=== PATIENT | male | born 1980 | race Hispanic/Latino ===

== ENCOUNTER 2017-10-13 19:46 | Emergency (ER) | payer BC ==
[2017-10-13 20:02] VITALS: BP 109/72; PULSE 72; RESP 18; TEMP 98.1; O2SAT 100
[2017-10-13] MEDS ORDERED: Morphine 4 MG/ML VIAL IVP ONE (21:47)
[2017-10-13] MEDS ORDERED: Sodium Chloride 0.9% 1,000 ML IV STA (21:47)
[2017-10-13 22:15] LABS: BASO % 0.2 % (0.0-2.0); EOS % 0.1 % (0.0-4.0); HEMOGLOBIN 13.2 g/dL (12.0-18.0); LYMPH # 0.5 K/uL (1.0-4.3); LYMPH % 4.9 % (20.0-40.0); MEAN CELL VOLUME 84.3 fl (80.0-94.0); MEAN CORPUSCULAR HGB CONC 33.2 g/dL (33.0-37.0); MEAN PLATELET VOLUME 7.9 fl (7.2-11.7); MONO # 0.6 K/uL (0.0-0.8); MONO % 5.3 % (0.0-10.0); NEUT # 9.7 K/uL (1.8-7.0); NEUT % 89.5 % (50.0-75.0); NRBC % 0.1 % (0.0-0.0); PLATELET COUNT 340 K/uL (130-400); WHITE BLOOD COUNT 10.9 K/uL (4.8-10.8)
[2017-10-13 22:24] LABS: ALB/GLOB RATIO 1.2 (1.0-2.1); ALBUMIN 4.2 g/dL (3.5-5.0); ALT/SGPT 23 U/L (21-72); AST/SGOT 19 U/L (17-59); BLOOD UREA NITROGEN 13 mg/dl (9-20); CALCIUM 9.3 mg/dL (8.4-10.2); GFR AFRICAN-AMERICAN > 60; GFR NON-AFRICAN AMERICAN > 60; LIPASE 43 U/L (23-300)
--- NOTE | 2017-10-13 22:33 | ED PDOC ---
HPI: Abdomen Time Seen by Provider: 10/13/17 21:26 Chief Complaint (Nursing): Abdominal Pain Chief Complaint (Provider): abdominal pain History Per: Patient History/Exam Limitations: no limitations Onset/Duration Of Symptoms: Days (x2) Current Symptoms Are (Timing): Still Present Quality Of Discomfort: Sharp, Cramping Associated Symptoms: Nausea, Vomiting, Diarrhea Additional Complaint(s): Carroll Phillips is a 37 year old male, with a past medical history of Crohn's disease, who presents to the emergency department complaining of abdominal pain associated with nausea, vomit and diarrhea onset for x2 days. Patient states at 01:00 he started to develop diarrhea with abdominal cramps and vomiting, he reports last episode was bloody. He describes pain is sharp and crampy. Patient states he was diagnosed with Crohn's disease many years ago but is not under any treatment. He reports losing weight consistently for the past x5 years but denies any other medical complaints. PMD: None provided. Past Medical History Reviewed: Historical Data, Nursing Documentation, Vital Signs Vital Signs: Last Vital Signs Temp 98.1 F 10/14/17 03:16 Pulse 72 10/14/17 03:16 Resp 18 10/14/17 03:16 BP 109/72 10/14/17 03:16 Pulse Ox 100 10/14/17 03:16 - Medical History PMH: Crohn's Disease - Surgical History Surgical History: No Surg Hx - Family History Family History: States: Unknown Family Hx - Home Medications Home Medications: Ambulatory Orders Medication Instructions Recorded Dicyclomine [Bentyl] 20 mg PO Q12 PRN #20 tab 10/14/17 Esomeprazole Magnesium [Nexium] 40 mg PO DAILY #28 ecc 10/14/17 Ondansetron ODT [Zofran ODT] 4 mg PO Q6 PRN #8 odt 10/14/17 - Allergies Allergies/Adverse Reactions: Allergies Allergy/AdvReac Type Severity Reaction Status Date / Time aspirin Allergy SWELLING Verified 10/13/17 19:59 shrimp Allergy SWELLING Verified 10/13/17 19:59 Review of Systems ROS Statement: Except As Marked, All Systems Reviewed And Found Negative Constitutional: Positive for: Weight loss Gastrointestinal: Positive for: Nausea, Vomiting, Abdominal Pain (crampy, sharp) , Diarrhea Physical Exam - Reviewed Nursing Documentation Reviewed: Yes Vital Signs Reviewed: Yes - Physical Exam Appears: Positive for: No Acute Distress (comfortable) Head Exam: Positive for: ATRAUMATIC, NORMAL INSPECTION, NORMOCEPHALIC Skin: Positive for: Normal Color, Warm, Dry Eye Exam: Positive for: Normal appearance, EOMI, PERRL Neck: Positive for: Painless ROM Cardiovascular/Chest: Positive for: Regular Rate, Rhythm. Negative for: Murmur Respiratory: Positive for: Normal Breath Sounds. Negative for: Respiratory Distress Gastrointestinal/Abdominal: Positive for: Tenderness (mild epigastric) Back: Positive for: Normal Inspection Extremity: Positive for: Normal ROM (upper and lower extremities). Negative for : Deformity, Swelling Neurologic/Psych: Positive for: Alert, Oriented. Negative for: Motor/Sensory Deficits - Laboratory Results Result Diagrams: 10/13/17 22:07 10/13/17 22:07 - ECG O2 Sat by Pulse Oximetry: 100 (RA) Pulse Ox Interpretation: Normal Medical Decision Making Medical Decision Making: Time: 21:26 Initial Impression: 37 y/o male with abdominal pain, vomiting, and diarrhea in setting of Crohn's disease Initial Plan: --Abd & Pelvis IV Contrast [CT] --Urine dipstick --CBC w/ differential --Morphine 4 mg IVP --Sodium Chloride 1,000 ml IV 1,000 mls/hr --Zofran Inj 4 mg IV --Protonix Inj 80 mg IV --Urinalysis --Reevaluation Abd & Pelvis CT FINDINGS: Lung bases: There is bibasilar atelectasis. ABDOMEN: Liver: Enlarged fatty liver. Gallbladder and bile ducts: Unremarkable. No ductal dilation. Pancreas: Unremarkable. No mass. No ductal dilation. Spleen: Unremarkable. No splenomegaly. Adrenals: Unremarkable. No mass. Kidneys and ureters: Unremarkable. No solid mass. No hydronephrosis. Stomach and bowel: There are distended MID to distal small bowel loops with air fluid level measuring 4.5 cm with mesenteric edema. There is thickening of distal small bowel and terminal ileum seen on image 131 series 3. These findings are suspicious for active acute inflammatory bowel disease. Correlation with patient gastroenterology history is recommended. Diverticulosis. The colon is decompressed.Nonspecific gastric thickening likely due to under distention. Correlation with clinical data is recommended if gastritis is suspected. PELVIS: Appendix: Appendix is 11 mm in thickness with periappendiceal fluid and no appendicolith. This could represent reactive changes secondary to inflammatory bowel disease. Bladder: Bladder distention. Correlation with patient's voiding status is recommended. Reproductive: Unremarkable. ABDOMEN and PELVIS: Intraperitoneal space: Small amount of abdomen intraperitoneal fluid and free pelvic fluid. No free air. Bones/joints: No acute fracture. No dislocation. Soft tissues: Unremarkable. Vasculature: The aorta is normal in caliber and there are no antionette-aortic collections. No abdominal aortic aneurysm. Lymph nodes: Multiple subcentimeter mesenteric and ileocolic lymph nodes. IMPRESSION: 1. There are distended MID to distal small bowel loops with air fluid level measuring 4.5 cm with mesenteric edema. There is thickening of distal small bowel and terminal ileum seen on image 131 series 3. These findings are suspicious for active acute inflammatory bowel disease. Correlation with patient gastroenterology history is recommended. 2. Small amount of abdomen intraperitoneal fluid and free pelvic fluid. Correlation with internal medicine evaluation and further workup or followup as recommended by patient's clinical data. Time: 02:15 --Upon reevaluation, patient reports feeling marginally improved. No RLQ tenderness. He commits to following up with GI specialist. Diagnosis is abdominal pain and Crohn's disease. --Patient was given return precautions about the hospital. --Labs were reviewed and revealed no clinically significant abnormalities. ----- Scribe Attestation: Documented by Hitesh Justice, acting as a scribe for Efrain Soto MD. Provider Scribe Attestation: All medical record entries made by the Scribe were at my direction and personally dictated by me. I have reviewed the chart and agree that the record accurately reflects my personal performance of the history, physical exam, medical decision making, and the department course for this patient. I have also personally directed, reviewed, and agree with the discharge instructions and disposition. Disposition - Clinical Impression Clinical Impression: Abdominal pain, Crohn disease - Disposition Referrals: Houston Preston MD [Medical Doctor] - Disposition Time: 15:00 Condition: STABLE Prescriptions: Dicyclomine [Bentyl] 20 mg PO Q12 PRN #20 tab PRN Reason: abdominal pain/diarrhea Esomeprazole Magnesium [Nexium] 40 mg PO DAILY #28 ecc Ondansetron ODT [Zofran ODT] 4 mg PO Q6 PRN #8 odt PRN Reason: Nausea/Vomiting Instructions: Crohn's Disease in Adults Forms: [employer] ([place])
[2017-10-13] MEDS ORDERED: Iohexol 300 100 ML IJ ONE (22:50)
[2017-10-13] MEDS ORDERED: Sodium Chloride 0.9% 100 ML ONE (22:51)
[2017-10-13 22:54] LABS: BASOPHIL 1 % (0-2); EOSINOPHIL 1 % (0-7); LYMPHOCYTE 4 % (20-50); MONOCYTE 2 % (0-10); NEUTROPHIL 92 % (42-75); PLATELET ESTIMATE NORMAL (NORMAL); TOTAL CELLS COUNTED 100
[2017-10-13] MEDS ORDERED: DiphenhydrAMINE 50 mg/ml Inj IV STA (22:59)
[2017-10-13] MEDS ORDERED: DiphenhydrAMINE 50 mg/ml Inj ONE (23:07)
--- NOTE | 2017-10-14 15:49 | CT ---
Date of service: 10/14/2017 PROCEDURE: CT Abdomen and Pelvis with contrast HISTORY: Abdominal pain COMPARISON: None. TECHNIQUE: Contrast dose: 95 cc Omnipaque 300 Radiation dose: Total exam DLP = 290.99 mGy-cm. This CT exam was performed using one or more of the following dose reduction techniques: Automated exposure control, adjustment of the mA and/or kV according to patient size, and/or use of iterative reconstruction technique. FINDINGS: LOWER THORAX: Minor passive/dependent type atelectasis left lung base. Heart size is within range normal. No evidence of pericardial effusion. LIVER: Liver is mildly enlarged measuring nearly 20 cm in CC dimension. Mild fatty hepatic infiltration. No obvious hepatic mass or collection Portal and splenic veins are opacified. There is a small amount of perihepatic ascites GALLBLADDER AND BILE DUCTS: Gallbladder physiologically distended. No evidence intraluminal gallbladder calculi. PANCREAS: Unremarkable. No gross lesion or ductal dilatation. SPLEEN: Spleen exhibits normal size and attenuation pattern. ADRENALS: Unremarkable. No mass. KIDNEYS AND URETERS: Unremarkable. No hydronephrosis. No solid mass. VASCULATURE: Unremarkable. No aortic aneurysm. BOWEL: Evaluation of the bowel slightly limited due to the lack of oral contrast material. The stomach is collapsed which presumably in part accounts for thick-walled appearance. Gastritis or other intrinsic/invasive wall lesion not excluded. There are is distention of several mid to distal loops of small bowel with air-fluid levels. Additionally, there is marked wall thickening of the distal of small bowel and terminal ileum consistent with a nonspecific enteritis. Rule out infectious/inflammatory bowel disease. APPENDIX: There is wall thickening and dilatation of the appendix which could be reactive however acute appendicitis not excluded. PERITONEUM: Perihepatic ascites extending inferiorly along the right pericolic gutter and into the pelvis. Tiny fat containing umbilical hernia. LYMPH NODES: Multiple small mesenteric lymph nodes likely reactive as well. BLADDER: Urinary bladder is distended. No evidence of intraluminal urinary bladder calculi. REPRODUCTIVE: Unremarkable. BONES: Osseous structures intact. OTHER FINDINGS: None. IMPRESSION: Findings consistent with localized enteritis involving the distal and terminal ileum ; rule out infectious versus inflammatory bowel disease. There is also a mild of dilatation and thickening of the wall of the appendix which could be reactive secondary to the aforementioned inflammation however acute appendicitis not excluded. Clinical correlation recommended. There is small amount of abdominal and pelvic ascites. Mild hepatomegaly with mild fatty hepatic infiltration Preliminary report provided by overnight radiology service
== END 2017-10-14 02:27 | disposition home or self-care (01) ==
LOC: H.ER 19:46
DX: K50.90 Crohn's disease, unspecified, without complications (principal); R10.9 Unspecified abdominal pain
CPT/HCPCS: 74177; 80053; 83690; 85025; 96374; 96375; 99283; C9113; J1200; J2270; J2405; J2930; J7030; Q9967

== ENCOUNTER 2018-02-19 13:25 | Inpatient (IN) | payer BC ==
[2018-02-19] MEDS ORDERED: Sodium Chloride 0.9% 1,000 ML IV STA ×2 (14:19→20:34)
--- NOTE | 2018-02-19 14:23 | ED PDOC ---
HPI: Abdomen Time Seen by Provider: 02/19/18 13:56 Chief Complaint (Nursing): Abdominal Pain Chief Complaint (Provider): Abdominal pain History Per: Patient History/Exam Limitations: no limitations Additional Complaint(s): Pt reports nausea, vomiting, abdominal pain and diarrhea X 3 days, was evaluated @ [facility] and given Rx Zofran and Bentyl without relief. Pt was dx with Crohn's disease in 2001, took medications for 2 years and has had no symptoms since then. Past Medical History Reviewed: Nursing Documentation, Vital Signs Vital Signs: Last Vital Signs Temp 101.5 F H 02/19/18 13:48 Pulse 120 H 02/19/18 13:48 Resp 18 02/19/18 13:48 BP 115/75 02/19/18 13:48 Pulse Ox 99 02/19/18 13:48 - Medical History PMH: Crohn's Disease - Surgical History Surgical History: No Surg Hx - Family History Family History: States: Unknown Family Hx - Living Arrangements Living Arrangements: With Family - Social History Current smoker - smoking cessation education provided: Yes Alcohol: None Drugs: Cannabis - Home Medications Home Medications: Ambulatory Orders Medication Instructions Recorded Dicyclomine [Bentyl] 20 mg PO QID 02/19/18 Esomeprazole Magnesium [Nexium] 40 mg PO DAILY 02/19/18 Ondansetron ODT [Zofran ODT] 4 mg PO Q4 PRN 02/19/18 Ciprofloxacin HCl [Cipro] 500 mg PO BID #14 tab 02/21/18 predniSONE [predniSONE Tab] 10 mg PO DAILY #7 tab 02/21/18 - Allergies Allergies/Adverse Reactions: Allergies Allergy/AdvReac Type Severity Reaction Status Date / Time aspirin Allergy SWELLING Verified 10/13/17 19:59 shrimp Allergy SWELLING Verified 10/13/17 19:59 Review of Systems Constitutional: Positive for: Fever, Chills Cardiovascular: Negative for: Chest Pain, Palpitations Respiratory: Negative for: Cough, Shortness of Breath Gastrointestinal: Positive for: Nausea, Vomiting, Abdominal Pain, Diarrhea. Negative for: Hematochezia, Hematemesis Genitourinary Male: Negative for: Dysuria, Hematuria Musculoskeletal: Negative for: Neck Pain, Back Pain Skin: Negative for: Rash, Lesions Neurological: Negative for: Weakness, Numbness, Headache, Dizziness Physical Exam - Reviewed Nursing Documentation Reviewed: Yes Vital Signs Reviewed: Yes - Physical Exam Appears: Positive for: Uncomfortable Head Exam: Positive for: ATRAUMATIC, NORMAL INSPECTION Skin: Positive for: Normal Color, Warm, Dry Eye Exam: Positive for: Normal appearance, EOMI, PERRL Cardiovascular/Chest: Positive for: Tachycardia. Negative for: Irregularly Irregular Respiratory: Positive for: Normal Breath Sounds. Negative for: Rales, Rhonchi, Wheezing Gastrointestinal/Abdominal: Positive for: Bowel Sounds, Soft, Tenderness (Generalized). Negative for: Mass, Distended, Guarding, Rebound Back: Positive for: Normal Inspection Extremity: Positive for: Normal ROM Neurologic/Psych: Positive for: Alert, Oriented - Laboratory Results Result Diagrams: 02/20/18 05:50 02/20/18 05:50 - ECG O2 Sat by Pulse Oximetry: 99 Medical Decision Making Medical Decision Makin yo male with generalized abdominal pain, fever, vomiting and diarrhea. - labs - CT abd/pelvis - CXR - IVF - Tylenol - Zofran - Morphine Disposition - Clinical Impression Clinical Impression: Abdominal pain - Patient ED Disposition Is Patient to be Admitted: Transfer of Care - Disposition Disposition Time: 17:00 Condition: STABLE Patient Signed Over To: Esperanza Evans Handoff Comments: Pending CT.
[2018-02-19 14:50] LABS: VENOUS BLOOD GAS BASE EXCESS 2.3 mmol/L (0.0-2.0); VENOUS BLOOD GAS PCO2 31 mmHg (40-60); VENOUS BLOOD GAS PO2 40 mm/Hg (30-55); VENOUS BLOOD PH 7.51 (7.32-7.43)
[2018-02-19 14:52] LABS: BASO % 0.4 % (0.0-2.0); EOS % 0.2 % (0.0-4.0); HEMOGLOBIN 13.8 g/dL (12.0-18.0); LYMPH # 0.4 K/uL (1.0-4.3); LYMPH % 4.8 % (20.0-40.0); MEAN CELL VOLUME 84.8 fl (80.0-94.0); MEAN CORPUSCULAR HEMOGLOBIN 27.1 pg (27.0-31.0); MEAN CORPUSCULAR HGB CONC 31.9 g/dL (33.0-37.0); MEAN PLATELET VOLUME 7.9 fl (7.2-11.7); MONO # 0.4 K/uL (0.0-0.8); MONO % 4.3 % (0.0-10.0); NEUT # 8.5 K/uL (1.8-7.0); NEUT % 90.3 % (50.0-75.0); NRBC % 0.1 % (0.0-0.0); PLATELET COUNT 469 K/uL (130-400); RBC 5.11 Mil/uL (4.40-5.90); RED CELL DISTRIBUTION WIDTH 15.4 % (11.5-14.5); WHITE BLOOD COUNT 9.4 K/uL (4.8-10.8)
[2018-02-19 15:11] LABS: INR 1.1; PROTHROMBIN TIME 12.3 Seconds (9.8-13.1)
[2018-02-19 15:13] LABS: PARTIAL THROMBOPLASTIN TIME 36.1 Seconds (25.6-37.1)
[2018-02-19 15:21] LABS: ALB/GLOB RATIO 1.2 (1.0-2.1); ALBUMIN 4.8 g/dL (3.5-5.0); ALT/SGPT 16 U/L (21-72); AST/SGOT 20 U/L (17-59); BLOOD UREA NITROGEN 11 mg/dl (9-20); CALCIUM 9.8 mg/dL (8.4-10.2); GFR NON-AFRICAN AMERICAN > 60; LIPASE 34 U/L (23-300)
--- NOTE | 2018-02-19 15:44 | RAD ---
Date of service: 02/19/2018 PROCEDURE: CHEST RADIOGRAPH, 1 VIEW HISTORY: Fever COMPARISON: None available. FINDINGS: LUNGS: Clear. PLEURA: No pneumothorax or pleural fluid seen. CARDIOVASCULAR: No aortic atherosclerotic calcification present. Normal. OSSEOUS STRUCTURES: No significant abnormalities. VISUALIZED UPPER ABDOMEN: Normal. OTHER FINDINGS: None. IMPRESSION: No active disease.
[2018-02-19 15:56] LABS: BANDS 4 % (0-2); LYMPHOCYTE 6 % (20-50); MONOCYTE 3 % (0-10); NEUTROPHIL 87 % (42-75); TOTAL CELLS COUNTED 100
[2018-02-19 15:57] LABS: ANISOCYTOSIS SLIGHT; GIANT PLATELETS PRESENT; PLATELET ESTIMATE INCREASED (NORMAL)
[2018-02-19] MEDS ORDERED: Iohexol 300 100 ML IJ ONE (16:50)
[2018-02-19] MEDS ORDERED: Sodium Chloride 0.9% 50 ML IV ONE (16:50)
--- NOTE | 2018-02-19 17:55 | CT ---
Date of service: 02/19/2018 PROCEDURE: CT Abdomen and Pelvis with contrast HISTORY: Generalized abdominal CT pain fever and vomiting. COMPARISON: 10/14/2017 TECHNIQUE: Intravenous contrast dose: 95 cc Omnipaque 300. Radiation dose: Total exam DLP = 253.22 mGy-cm. This CT exam was performed using one or more of the following dose reduction techniques: Automated exposure control, adjustment of the mA and/or kV according to patient size, and/or use of iterative reconstruction technique. FINDINGS: LOWER THORAX: Unremarkable. LIVER: Unremarkable. No gross lesion or ductal dilatation. GALLBLADDER AND BILE DUCTS: Unremarkable. PANCREAS: Unremarkable. No gross lesion or ductal dilatation. SPLEEN: Unremarkable. ADRENALS: Unremarkable. No mass. KIDNEYS AND URETERS: Unremarkable. No hydronephrosis. No solid mass. VASCULATURE: Unremarkable. No aortic aneurysm. No atherosclerotic calcification or mural plaque present. BOWEL: Inflammatory bowel disease, severe. This particularly evident in pelvic loops of colon and small bowel. Inflammatory changes and profound thickening of the sigmoid. Small loculated collection 1.8 x 1.7 cm with air-fluid level. Proximal dilatation of colon. Severe inflammatory bowel disease also identified primarily in distal small bowel extending to the ileocecal valve region. APPENDIX: A normal appendix is not visible obscured by these inflammatory changes. PERITONEUM: Unremarkable. No free fluid. No free air. LYMPH NODES: Unremarkable. No enlarged lymph nodes. BLADDER: Unremarkable. REPRODUCTIVE: Unremarkable. BONES: No acute fracture. OTHER FINDINGS: None. IMPRESSION: Evidence of severe inflammatory bowel disease most notable in the sigmoid. Small walled-off abscess noted. Inflammatory changes are also identified in distal small bowel/ileum. Communication of results: I discussed findings directly with Dr. Esperanza Evans at the time of this interpretation
[2018-02-19] MEDS ORDERED: Ciprofloxacin 400mg/200ml D5W 400 MG/200 ML BAG IV STA (17:56)
[2018-02-19] MEDS ORDERED: metroNIDAZOLE 500mg/100ml NS 100 ML IV STA (17:56)
--- NOTE | 2018-02-19 18:17 | ED PDOC ---
- Laboratory Results Result Diagrams: 02/19/18 14:44 02/19/18 20:11 - ECG O2 Sat by Pulse Oximetry: 99 (RA) Pulse Ox Interpretation: Normal Medical Decision Making Medical Decision Making: Time: 170 --Patient received from Dr. Richardson, patient with Crohns disease, abdominal pain and fever, pending CT. Time: 1750 FINDINGS: LOWER THORAX: Unremarkable. LIVER: Unremarkable. No gross lesion or ductal dilatation. GALLBLADDER AND BILE DUCTS: Unremarkable. PANCREAS: Unremarkable. No gross lesion or ductal dilatation. SPLEEN: Unremarkable. ADRENALS: Unremarkable. No mass. KIDNEYS AND URETERS: Unremarkable. No hydronephrosis. No solid mass. VASCULATURE: Unremarkable. No aortic aneurysm. No atherosclerotic calcification or mural plaque present. BOWEL: Inflammatory bowel disease, severe. This particularly evident in pelvic loops of colon and small bowel. Inflammatory changes and profound thickening of the sigmoid. Small loculated collection 1.8 x 1.7 cm with air-fluid level. Proximal dilatation of colon. Severe inflammatory bowel disease also identified primarily in distal small bowel extending to the ileocecal valve region. APPENDIX: A normal appendix is not visible obscured by these inflammatory changes. PERITONEUM: Unremarkable. No free fluid. No free air. LYMPH NODES: Unremarkable. No enlarged lymph nodes. BLADDER: Unremarkable. REPRODUCTIVE: Unremarkable. BONES: No acute fracture. OTHER FINDINGS: None. IMPRESSION: Evidence of severe inflammatory bowel disease most notable in the sigmoid. Small walled-off abscess noted. Inflammatory changes are also identified in distal small bowel/ileum. Time: 1801 --Discussed with patient findings and need for hospitalization. IV antibiotics ordered. Case discussed with Dr. Laureano, medical service for hospitalization. --Case discussed with Dr. Morrison, GI, and Dr. Allen, surgical product sales consultant Scribe Attestation: Documented by Adilene Fuentes, acting as a scribe for Esperanza Evans MD Provider Scribe Attestation: All medical record entries made by the Scribe were at my direction and personally dictated by me. I have reviewed the chart and agree that the record accurately reflects my personal performance of the history, physical exam, medical decision making, and the department course for this patient. I have also personally directed, reviewed, and agree with the discharge instructions and disposition Disposition - Disposition
[2018-02-19] MEDS ORDERED: Ciprofloxacin 400mg/200ml D5W 400 MG/200 ML BAG IVPB ONE (19:09)
[2018-02-19 19:18] LABS: SQUAMOUS EPITHIAL < 1 /hpf (0-5); URINE BILIRUBIN NEGATIVE (NEGATIVE); URINE BLOOD NEGATIVE (NEGATIVE); URINE CLARITY SLIGHTY-CLOUDY (Clear); URINE COLOR YELLOW (YELLOW); URINE GLUCOSE (UA) NEG (Normal); URINE LEUKOCYTE ESTERASE NEG Leu/uL (Negative); URINE PROTEIN NEGATIVE (NEGATIVE)
[2018-02-19 20:30] LABS: VENOUS BLOOD GAS BASE EXCESS 0.8 mmol/L (0.0-2.0); VENOUS BLOOD GAS PCO2 16 mmHg (40-60); VENOUS BLOOD GAS PO2 71 mm/Hg (30-55); VENOUS BLOOD PH 7.67 (7.32-7.43)
--- NOTE | 2018-02-19 20:35 | CP.PCM.CON ---
History of Present Illness - History of Present Illness History of Present Illness: Surgery Consult note. Dr. Wren service. 37yo M with PMHx of Crohn's disease here for evaluation of abdominal pain. Patient states that he has been having abdominal pain for the past week. His pain has gradually gotten worse and is associated with nausea, vomiting and fevers/chills. He states that he was diagnosed with Crohn's disease in 2001 and was treated for 2 years with medications and has since been doing well. Last fl are was in October and at the time was treated symptomatically with resolve. This episode is described as worse. He denies any bloody emesis or bloody stools. He does states that he has been gradually been getting worse with decreased PO tolerance over the week. He went to an urgent care two days ago and was given zofran and bentyl without any improvement in his symptoms. In the ED, he obtained a CT Abd/Pelvis with evidence of ileitis and sigmoid colitis with a 1.8 x 1.8 cm abscess collection. He is febrile with a Tmax of 101.5F, improved with Tylenol. Surgery consult was requested for the abdominal abscess. PMHx: Crohn Disease PSHx: Denies. Last Colonoscopy in 2001 (upon diagnosis of Crohn's Disease) Family Hx: Denies Social Hx: Current tobacco use (prior cigarrets and Jewel E.cig for past 6 months); Rare ETOH use; Admits to daily marijuana use Allergy: ASA (throat swelling), Shrimp (throat swelling) Review of Systems - Review of Systems All systems: reviewed and no additional remarkable complaints except - Constitutional Constitutional: Chills, Fever - EENT Eyes: absent: Change in Vision Ears: absent: Decreased Hearing Nose/Mouth/Throat: absent: Epistaxis, Nasal Congestion - Cardiovascular Cardiovascular: Diaphoresis. absent: Chest Pain, Dyspnea - Respiratory Respiratory: absent: Cough, Dyspnea - Gastrointestinal Gastrointestinal: Abdominal Pain, Nausea, Vomiting. absent: Diarrhea, Hematemesis, Hematochezia, Melena - Genitourinary Genitourinary: absent: Dysuria - Musculoskeletal Musculoskeletal: absent: Abnormal Gait - Integumentary Integumentary: absent: Rash - Neurological Neurological: absent: Abnormal Gait, Dizziness, Numbness, Headaches Past Patient History - Past Medical History & Family History Past Family History: Reviewed and not pertinent - Past Social History Smoking Status: Current Some Days Smoker (admits to rare ETOH use) Alcohol: None Drugs: Cannabis - GASTROINTESTINAL Hx Crohn's Disease: Yes - PSYCHIATRIC Hx Substance Use: No Meds Allergies/Adverse Reactions: Allergies Allergy/AdvReac Type Severity Reaction Status Date / Time aspirin Allergy SWELLING Verified 10/13/17 19:59 shrimp Allergy SWELLING Verified 10/13/17 19:59 - Medications Medications: Current Medications Acetaminophen (Tylenol 325mg Tab) 650 mg PO Q4 PRN PRN Reason: Fever >100.4 F Dextrose/Sodium Chloride (Dextrose 5%-0.9% Ns 500 Ml) 1,000 mls @ 100 mls/hr IV .Q10H ONE Stop: 02/20/18 04:14 Last Admin: 02/19/18 19:11 Dose: 100 mls/hr Piperacillin Sod/Tazobactam (Sod 3.375 gm/ Sodium Chloride) 100 mls @ 100 mls/hr IVPB Q6 JOSEFA; Protocol Morphine Sulfate (Morphine) 4 mg IVP Q6 PRN PRN Reason: Pain, moderate (4-7) Ondansetron HCl (Zofran Inj) 4 mg IVP Q4 PRN PRN Reason: Nausea/Vomiting Physical Exam - Constitutional Appears: Non-toxic, No Acute Distress - Head Exam Head Exam: ATRAUMATIC, NORMAL INSPECTION, NORMOCEPHALIC - Eye Exam Eye Exam: EOMI, Normal appearance - ENT Exam ENT Exam: Mucous Membranes Moist, Normal Exam - Neck Exam Neck exam: Positive for: Full Rom - Respiratory Exam Respiratory Exam: NORMAL BREATHING PATTERN. absent: Respiratory Distress - Cardiovascular Exam Cardiovascular Exam: Tachycardia. absent: JVD - GI/Abdominal Exam GI & Abdominal Exam: Soft. absent: Guarding, Rebound Additional comments: Lower abdominal tenderness, left quadrant worse than right. soft, non-distended. - Extremities Exam Extremities exam: Positive for: normal inspection. Negative for: calf tenderness - Back Exam Back exam: NORMAL INSPECTION - Neurological Exam Neurological exam: Alert, Oriented x3 - Psychiatric Exam Psychiatric exam: Normal Affect, Normal Mood - Skin Skin Exam: Intact, Normal Color, Warm Results - Vital Signs Recent Vital Signs: Last Vital Signs Temp 101.1 F H 02/19/18 19:09 Pulse 131 H 02/19/18 19:46 Resp 18 02/19/18 13:48 BP 142/97 H 02/19/18 19:46 Pulse Ox 99 02/19/18 19:46 - Labs Result Diagrams: 02/19/18 14:44 02/19/18 14:44 Labs: Laboratory Results - last 24 hr 02/19/18 02/19/18 02/19/18 14:31 14:44 14:44 WBC 9.4 RBC 5.11 Hgb 13.8 Hct 43.3 MCV 84.8 MCH 27.1 MCHC 31.9 L RDW 15.4 H Plt Count 469 H D MPV 7.9 Neut % (Auto) 90.3 H Lymph % (Auto) 4.8 L [place] % (Auto) 4.3 Eos % (Auto) 0.2 Baso % (Auto) 0.4 Neut # (Auto) 8.5 H Lymph # (Auto) 0.4 L [place] # (Auto) 0.4 Eos # (Auto) 0.0 Baso # (Auto) 0.0 Neutrophils % (Manual) 87 H Band Neutrophils % 4 H Lymphocytes % (Manual) 6 L Monocytes % (Manual) 3 Platelet Estimate Increased H Giant Platelets Present Anisocytosis (manual) Slight PT INR APTT pO2 VBG pH VBG pCO2 VBG HCO3 VBG Total CO2 VBG O2 Sat (Calc) VBG Base Excess VBG Potassium Glucose Lactate FiO2 Sodium 136 Potassium 4.0 Chloride 95 L Carbon Dioxide 23 Anion Gap 22 H BUN 11 Creatinine 0.8 Est GFR ( Amer) > 60 Est GFR (Non-Af Amer) > 60 POC Glucose (mg/dL) 112 H Random Glucose 122 H Calcium 9.8 Total Bilirubin 0.9 AST 20 ALT 16 L D Alkaline Phosphatase 102 Total Protein 8.6 H Albumin 4.8 Globulin 3.9 Albumin/Globulin Ratio 1.2 Lipase 34 Venous Blood Potassium Urine Color Urine Clarity Urine pH Ur Specific [place] Urine Protein Urine Glucose (UA) Urine Ketones Urine Blood Urine Nitrate Urine Bilirubin Urine Urobilinogen Ur Leukocyte Esterase Urine RBC (Auto) Urine Microscopic WBC Ur Squamous Epith Cells Influenza Typ A,B (EIA) 02/19/18 02/19/18 02/19/18 14:44 14:44 14:45 WBC RBC Hgb Hct MCV MCH MCHC RDW Plt Count MPV Neut % (Auto) Lymph % (Auto) [place] % (Auto) Eos % (Auto) Baso % (Auto) Neut # (Auto) Lymph # (Auto) [place] # (Auto) Eos # (Auto) Baso # (Auto) Neutrophils % (Manual) Band Neutrophils % Lymphocytes % (Manual) Monocytes % (Manual) Platelet Estimate Giant Platelets Anisocytosis (manual) PT 12.3 INR 1.1 APTT 36.1 pO2 40 VBG pH 7.51 H VBG pCO2 31 L VBG HCO3 26.3 VBG Total CO2 25.7 VBG O2 Sat (Calc) 83.5 H VBG Base Excess 2.3 H VBG Potassium 3.6 Glucose 116 H Lactate 1.1 FiO2 21.0 Sodium 129.0 L Potassium Chloride 96.0 L Carbon Dioxide Anion Gap BUN Creatinine Est GFR ( Amer) Est GFR (Non-Af Amer) POC Glucose (mg/dL) Random Glucose Calcium Total Bilirubin AST ALT Alkaline Phosphatase Total Protein Albumin Globulin Albumin/Globulin Ratio Lipase Venous Blood Potassium 3.6 Urine Color Urine Clarity Urine pH Ur Specific [place] Urine Protein Urine Glucose (UA) Urine Ketones Urine Blood Urine Nitrate Urine Bilirubin Urine Urobilinogen Ur Leukocyte Esterase Urine RBC (Auto) Urine Microscopic WBC Ur Squamous Epith Cells Influenza Typ A,B (EIA) Negative for flu a/b 02/19/18 02/19/18 19:02 19:08 WBC RBC Hgb Hct MCV MCH MCHC RDW Plt Count MPV Neut % (Auto) Lymph % (Auto) [place] % (Auto) Eos % (Auto) Baso % (Auto) Neut # (Auto) Lymph # (Auto) [place] # (Auto) Eos # (Auto) Baso # (Auto) Neutrophils % (Manual) Band Neutrophils % Lymphocytes % (Manual) Monocytes % (Manual) Platelet Estimate Giant Platelets Anisocytosis (manual) PT INR APTT pO2 VBG pH VBG pCO2 VBG HCO3 VBG Total CO2 VBG O2 Sat (Calc) VBG Base Excess VBG Potassium Glucose Lactate FiO2 Sodium Potassium Chloride Carbon Dioxide Anion Gap BUN Creatinine Est GFR ( Amer) Est GFR (Non-Af Amer) POC Glucose (mg/dL) 80 Random Glucose Calcium Total Bilirubin AST ALT Alkaline Phosphatase Total Protein Albumin Globulin Albumin/Globulin Ratio Lipase Venous Blood Potassium Urine Color Yellow Urine Clarity Slighty-cloudy Urine pH 6.0 Ur Specific [place] 1.030 Urine Protein Negative Urine Glucose (UA) Neg Urine Ketones 20 Urine Blood Negative Urine Nitrate Negative Urine Bilirubin Negative Urine Urobilinogen 4.0 Ur Leukocyte Esterase Neg Urine RBC (Auto) 2 Urine Microscopic WBC 1 Ur Squamous Epith Cells < 1 Influenza Typ A,B (EIA) Assessment & Plan - Assessment and Plan (Free Text) Assessment: 37yo M with chron's disease flare. Abdominal abscess 1.8 x 1.8cm loculated in the sigmoid region. -CT Abd/Pelvis noted with evidence of ileitis and sigmoid colitis. Loculated abscess in the sigmoid region 1.8 x 1.8 cm. -Febrile, tachycardic -Upgrade Abx to Zosyn -Antiemetics -Tylenol prn for fever -Morphine prn for pain -IVF -bowel rest -conservative management -f/u blood cultures -Admit to medicine -f/u GI consult and recs Discussed case with Dr. Wren. Earl Allen PGY2 Surgery
[2018-02-19 20:47] LABS: BLOOD UREA NITROGEN 12 mg/dl (9-20); CALCIUM 8.8 mg/dL (8.4-10.2); GFR NON-AFRICAN AMERICAN > 60
[2018-02-19] MEDS ORDERED: metroNIDAZOLE 500mg/100ml NS 100 ML IVPB ONE (21:08)
[2018-02-19] MEDS ORDERED: Piperacillin/Tazobact 3.375 gm Inj IVPB ONE (22:28)
[2018-02-19] MEDS: Piperacillin/Tazobact 3.375 GM in Sodium Chloride 0.9% 100 ML IVPB SCH (22:35)
[2018-02-20] MEDS: Piperacillin/Tazobact 3.375 GM in Sodium Chloride 0.9% 100 ML IVPB SCH ×4 (03:48→22:00)
[2018-02-20] MEDS ORDERED: Pneumococcal 23-Valent Vaccine IM ONE (06:00)
[2018-02-20 06:18] LABS: BASO % 0.6 % (0.0-2.0); EOS % 0.8 % (0.0-4.0); HEMOGLOBIN 11.6 g/dL (12.0-18.0); LYMPH # 0.2 K/uL (1.0-4.3); LYMPH % 4.7 % (20.0-40.0); MEAN CELL VOLUME 82.9 fl (80.0-94.0); MEAN CORPUSCULAR HEMOGLOBIN 26.7 pg (27.0-31.0); MEAN CORPUSCULAR HGB CONC 32.2 g/dL (33.0-37.0); MEAN PLATELET VOLUME 7.4 fl (7.2-11.7); MONO # 0.3 K/uL (0.0-0.8); MONO % 6.5 % (0.0-10.0); NEUT # 4.2 K/uL (1.8-7.0); NEUT % 87.4 % (50.0-75.0); RBC 4.35 Mil/uL (4.40-5.90); RED CELL DISTRIBUTION WIDTH 15.5 % (11.5-14.5); WHITE BLOOD COUNT 4.8 K/uL (4.8-10.8)
[2018-02-20 06:51] LABS: BLOOD UREA NITROGEN 10 mg/dl (9-20); CALCIUM 8.5 mg/dL (8.4-10.2); GFR NON-AFRICAN AMERICAN > 60
--- NOTE | 2018-02-20 07:45 | CP.PCM.PN ---
Subjective - Date & Time of Evaluation Date of Evaluation: 02/20/18 Time of Evaluation: 06:55 - Subjective Subjective: General surgery progress note for Dr. Wren Patient seen and examined this am at bedside. MIRIAMEO per nursing. Patient has been afebrile with no n/v overnight. He states that his abdominal pain has improved and he is tolerating the ice chips well. He otherwise denies OJEDA, CP, SOB, extremity pain or weakness. Objective - Vital Signs/Intake and Output Vital Signs (last 24 hours): Temp Pulse Resp BP Pulse Ox 97.5 F L 76 18 94/56 L 98 02/20/18 06:04 02/19/18 23:49 02/19/18 23:49 02/19/18 23:49 02/19/18 23:49 - Medications Medications: Current Medications Acetaminophen (Tylenol 325mg Tab) 650 mg PO Q4 PRN PRN Reason: Fever >100.4 F Piperacillin Sod/Tazobactam (Sod 3.375 gm/ Sodium Chloride) 100 mls @ 100 mls/hr IVPB Q6 JOSEFA; Protocol Last Admin: 02/20/18 03:48 Dose: 100 mls/hr Influenza Virus Vaccine (Afluria Quad (Pf) [id number]) 60 mcg IM .ONCE ONE Stop: 02/20/18 09:01 Morphine Sulfate (Morphine) 4 mg IVP Q6 PRN PRN Reason: Pain, moderate (4-7) Ondansetron HCl (Zofran Inj) 4 mg IVP Q4 PRN PRN Reason: Nausea/Vomiting Pantoprazole Sodium (Protonix Inj) 40 mg IVP DAILY JOSEFA - Labs Labs: 02/20/18 05:50 02/20/18 05:50 PT 12.3 Seconds (9.8-13.1) 02/19/18 14:44 INR 1.1 02/19/18 14:44 APTT 36.1 Seconds (25.6-37.1) 02/19/18 14:44 - Constitutional Appears: Well, Non-toxic, No Acute Distress - Head Exam Head Exam: ATRAUMATIC, NORMOCEPHALIC - Eye Exam Eye Exam: EOMI - ENT Exam ENT Exam: Mucous Membranes Moist - Respiratory Exam Respiratory Exam: NORMAL BREATHING PATTERN - Cardiovascular Exam Cardiovascular Exam: REGULAR RHYTHM - GI/Abdominal Exam GI & Abdominal Exam: Soft, Tenderness (mild RLQ). absent: Distended, Guarding - Extremities Exam Extremities Exam: absent: Calf Tenderness, Pedal Edema - Neurological Exam Neurological Exam: Alert, Awake, Oriented x3 - Psychiatric Exam Psychiatric exam: Normal Affect, Normal Mood - Skin Skin Exam: Dry, Intact, Normal Color, Warm Assessment and Plan - Assessment and Plan (Free Text) Assessment: 37 yr old male with Crohn's disease flare and sigmoid colitis with small intrabdominal abscess Plan: -c/w Zosyn -Tylenol prn for fever -Morphine prn for pain -f/u blood cultures -f/u GI consult and recs -c/w conservative management -ADAT - will d/w Dr. Siena Ledezma, PGY 1
[2018-02-20] MEDS ORDERED: Influenza Vaccine (5 YR UP)/PF 60 MCG/0.5 ML SYR IM ONE (09:00)
[2018-02-20] MEDS ORDERED: methylPREDNISolone 20 MG in Sodium Chloride 0.9% 50 ML IVPB SCH (09:15)
--- NOTE | 2018-02-20 09:55 | CP.PCM.CON ---
History of Present Illness - History of Present Illness History of Present Illness: Gastroenterology Consult note- Dr. Morrison 37M pmhx significant for Crohn's diagnosed in 2001 presents to [facility] ED w/ worsening abdominal pain over the last week w/ associated nausea, vomiting, subjective fevers and chills. States last flare was October and was treated symptomatically which resolved. Denies recent foreign travel, or recent sick contacts. Denies current: bright red blood per rectum, blood in stool, hematemesis changes in urinary habits. Patient took bentyl with no relief. ED work up showed patient to have ileitis, sigmoid colitis and a 1.8x1.8cm abscess collection. GI was called for evaluation of Crohn's disease. PMH: Crohn Disease PSH: Denies. Last Colonoscopy in 2001 (upon diagnosis of Crohn's Disease) SocialHx: Current tobacco use (prior cigarette smoking 1ppd > 5 years. current Jewel E.cig for past 6 months); Rare ETOH use; Admits to daily marijuana use. works at a [employer] at night. admits to poor sleep hygiene. ALL: ASA (throat swelling), Shrimp (throat swelling) FH: non-contributory 12 pt ROS conducted, negative otherwise stated above Review of Systems - Review of Systems All systems: reviewed and no additional remarkable complaints except - Constitutional Constitutional: As Per HPI Past Patient History - Past Medical History & Family History Past Family History: Reviewed and not pertinent - Past Social History Smoking Status: Former Smoker - CARDIAC Hx Cardiac Disorders: No - PULMONARY Hx Respiratory Disorders: No - NEUROLOGICAL Hx Neurological Disorder: No - HEENT Hx HEENT Problems: No - RENAL Hx Chronic Kidney Disease: No - ENDOCRINE/METABOLIC Hx Endocrine Disorders: No (crohns) - HEMATOLOGICAL/ONCOLOGICAL Hx Blood Disorders: No - INTEGUMENTARY Hx Dermatological Problems: No - MUSCULOSKELETAL/RHEUMATOLOGICAL Hx Musculoskeletal Disorders: No Hx Falls: No - GASTROINTESTINAL Hx Crohn's Disease: Yes - GENITOURINARY/GYNECOLOGICAL Hx Genitourinary Disorders: No - PSYCHIATRIC Hx Psychophysiologic Disorder: No Hx Substance Use: No - ANESTHESIA Hx Anesthesia: Yes Hx Anesthesia Reactions: No Meds Allergies/Adverse Reactions: Allergies Allergy/AdvReac Type Severity Reaction Status Date / Time aspirin Allergy SWELLING Verified 10/13/17 19:59 shrimp Allergy SWELLING Verified 10/13/17 19:59 - Medications Medications: Current Medications Acetaminophen (Tylenol 325mg Tab) 650 mg PO Q4 PRN PRN Reason: Fever >100.4 F Piperacillin Sod/Tazobactam (Sod 3.375 gm/ Sodium Chloride) 100 mls @ 100 mls/hr IVPB Q6 JOSEFA; Protocol Last Admin: 02/20/18 03:48 Dose: 100 mls/hr Methylprednisolone (Solu-Medrol) 20 mg IVP Q12H JOSEFA Morphine Sulfate (Morphine) 4 mg IVP Q6 PRN PRN Reason: Pain, moderate (4-7) Ondansetron HCl (Zofran Inj) 4 mg IVP Q4 PRN PRN Reason: Nausea/Vomiting Pantoprazole Sodium (Protonix Inj) 40 mg IVP DAILY JOSEFA Physical Exam - Constitutional Appears: Non-toxic, No Acute Distress - Head Exam Head Exam: ATRAUMATIC - Eye Exam Eye Exam: EOMI. absent: Scleral icterus - ENT Exam ENT Exam: Mucous Membranes Moist - Neck Exam Neck exam: Positive for: Normal Inspection - Respiratory Exam Respiratory Exam: NORMAL BREATHING PATTERN. absent: Accessory Muscle Use, Respiratory Distress - Cardiovascular Exam Cardiovascular Exam: Tachycardia, +S1, +S2. absent: Bradycardia - GI/Abdominal Exam GI & Abdominal Exam: Soft, Tenderness (LLQ to deep palpation). absent: Distended, Firm, Guarding, Hernia, Rigid - Extremities Exam Extremities exam: Positive for: normal inspection. Negative for: calf ten derness - Neurological Exam Neurological exam: Alert, Oriented x3 - Psychiatric Exam Psychiatric exam: Normal Affect - Skin Skin Exam: Intact, Warm Results - Vital Signs Recent Vital Signs: Last Vital Signs Temp 97.6 F 02/20/18 07:58 Pulse 70 02/20/18 07:58 Resp 20 02/20/18 07:58 BP 105/69 02/20/18 07:58 Pulse Ox 100 02/20/18 07:58 - Labs Result Diagrams: 02/20/18 05:50 02/20/18 05:50 Labs: Laboratory Results - last 24 hr 02/19/18 02/19/18 02/19/18 14:31 14:44 14:44 WBC 9.4 RBC 5.11 Hgb 13.8 Hct 43.3 MCV 84.8 MCH 27.1 MCHC 31.9 L RDW 15.4 H Plt Count 469 H D MPV 7.9 Neut % (Auto) 90.3 H Lymph % (Auto) 4.8 L [place] % (Auto) 4.3 Eos % (Auto) 0.2 Baso % (Auto) 0.4 Neut # (Auto) 8.5 H Lymph # (Auto) 0.4 L [place] # (Auto) 0.4 Eos # (Auto) 0.0 Baso # (Auto) 0.0 Neutrophils % (Manual) 87 H Band Neutrophils % 4 H Lymphocytes % (Manual) 6 L Monocytes % (Manual) 3 Platelet Estimate Increased H Giant Platelets Present Anisocytosis (manual) Slight PT INR APTT pO2 VBG pH VBG pCO2 VBG HCO3 VBG Total CO2 VBG O2 Sat (Calc) VBG Base Excess VBG Potassium Glucose Lactate FiO2 Crit Value Called To Crit Value Called By Crit Value Read Back Blood Gas Notified Time Sodium 136 Potassium 4.0 Chloride 95 L Carbon Dioxide 23 Anion Gap 22 H BUN 11 Creatinine 0.8 Est GFR ( Amer) > 60 Est GFR (Non-Af Amer) > 60 POC Glucose (mg/dL) 112 H Random Glucose 122 H Lactic Acid Calcium 9.8 Total Bilirubin 0.9 AST 20 ALT 16 L D Alkaline Phosphatase 102 Total Protein 8.6 H Albumin 4.8 Globulin 3.9 Albumin/Globulin Ratio 1.2 Lipase 34 Venous Blood Potassium Urine Color Urine Clarity Urine pH Ur Specific [place] Urine Protein Urine Glucose (UA) Urine Ketones Urine Blood Urine Nitrate Urine Bilirubin Urine Urobilinogen Ur Leukocyte Esterase Urine RBC (Auto) Urine Microscopic WBC Ur Squamous Epith Cells Influenza Typ A,B (EIA) 02/19/18 02/19/18 02/19/18 14:44 14:44 14:45 WBC RBC Hgb Hct MCV MCH MCHC RDW Plt Count MPV Neut % (Auto) Lymph % (Auto) [place] % (Auto) Eos % (Auto) Baso % (Auto) Neut # (Auto) Lymph # (Auto) [place] # (Auto) Eos # (Auto) Baso # (Auto) Neutrophils % (Manual) Band Neutrophils % Lymphocytes % (Manual) Monocytes % (Manual) Platelet Estimate Giant Platelets Anisocytosis (manual) PT 12.3 INR 1.1 APTT 36.1 pO2 40 VBG pH 7.51 H VBG pCO2 31 L VBG HCO3 26.3 VBG Total CO2 25.7 VBG O2 Sat (Calc) 83.5 H VBG Base Excess 2.3 H VBG Potassium 3.6 Glucose 116 H Lactate 1.1 FiO2 21.0 Crit Value Called To Crit Value Called By Crit Value Read Back Blood Gas Notified Time Sodium 129.0 L Potassium Chloride 96.0 L Carbon Dioxide Anion Gap BUN Creatinine Est GFR ( Amer) Est GFR (Non-Af Amer) POC Glucose (mg/dL) Random Glucose Lactic Acid Calcium Total Bilirubin AST ALT Alkaline Phosphatase Total Protein Albumin Globulin Albumin/Globulin Ratio Lipase Venous Blood Potassium 3.6 Urine Color Urine Clarity Urine pH Ur Specific [place] Urine Protein Urine Glucose (UA) Urine Ketones Urine Blood Urine Nitrate Urine Bilirubin Urine Urobilinogen Ur Leukocyte Esterase Urine RBC (Auto) Urine Microscopic WBC Ur Squamous Epith Cells Influenza Typ A,B (EIA) Negative for flu a/b 02/19/18 02/19/18 02/19/18 19:02 19:08 20:11 WBC RBC Hgb Hct MCV MCH MCHC RDW Plt Count MPV Neut % (Auto) Lymph % (Auto) [place] % (Auto) Eos % (Auto) Baso % (Auto) Neut # (Auto) Lymph # (Auto) [place] # (Auto) Eos # (Auto) Baso # (Auto) Neutrophils % (Manual) Band Neutrophils % Lymphocytes % (Manual) Monocytes % (Manual) Platelet Estimate Giant Platelets Anisocytosis (manual) PT INR APTT pO2 VBG pH VBG pCO2 VBG HCO3 VBG Total CO2 VBG O2 Sat (Calc) VBG Base Excess VBG Potassium Glucose Lactate FiO2 Crit Value Called To Crit Value Called By Crit Value Read Back Blood Gas Notified Time Sodium 133 Potassium 3.7 Chloride 100 Carbon Dioxide 18 L Anion Gap 19 BUN 12 Creatinine 0.8 Est GFR ( Amer) > 60 Est GFR (Non-Af Amer) > 60 POC Glucose (mg/dL) 80 Random Glucose 173 H Lactic Acid Calcium 8.8 Total Bilirubin AST ALT Alkaline Phosphatase Total Protein Albumin Globulin Albumin/Globulin Ratio Lipase Venous Blood Potassium Urine Color Yellow Urine Clarity Slighty-cloudy Urine pH 6.0 Ur Specific [place] 1.030 Urine Protein Negative Urine Glucose (UA) Neg Urine Ketones 20 Urine Blood Negative Urine Nitrate Negative Urine Bilirubin Negative Urine Urobilinogen 4.0 Ur Leukocyte Esterase Neg Urine RBC (Auto) 2 Urine Microscopic WBC 1 Ur Squamous Epith Cells < 1 Influenza Typ A,B (EIA) 11/02/20/18 02/20/18 20:15 00:23 05:50 WBC 4.8 RBC 4.35 L Hgb 11.6 L D Hct 36.1 MCV 82.9 MCH 26.7 L MCHC 32.2 L RDW 15.5 H Plt Count 285 D MPV 7.4 Neut % (Auto) 87.4 H Lymph % (Auto) 4.7 L [place] % (Auto) 6.5 Eos % (Auto) 0.8 Baso % (Auto) 0.6 Neut # (Auto) 4.2 Lymph # (Auto) 0.2 L [place] # (Auto) 0.3 Eos # (Auto) 0.0 Baso # (Auto) 0.0 Neutrophils % (Manual) Band Neutrophils % Lymphocytes % (Manual) Monocytes % (Manual) Platelet Estimate Giant Platelets Anisocytosis (manual) PT INR APTT pO2 71 H VBG pH 7.67 H* VBG pCO2 16 L* VBG HCO3 25.5 VBG Total CO2 19.0 L VBG O2 Sat (Calc) 98.4 H VBG Base Excess 0.8 VBG Potassium 3.8 Glucose 178 H Lactate 4.5 H* FiO2 21.0 Crit Value Called To Ching whitman Crit Value Called By 23 Crit Value Read Back Y Blood Gas Notified Time 2024 Sodium 129.0 L Potassium Chloride 97.0 L Carbon Dioxide Anion Gap BUN Creatinine Est GFR ( Amer) Est GFR (Non-Af Amer) POC Glucose (mg/dL) Random Glucose Lactic Acid < 0.5 L Calcium Total Bilirubin AST ALT Alkaline Phosphatase Total Protein Albumin Globulin Albumin/Globulin Ratio Lipase Venous Blood Potassium 3.8 Urine Color Urine Clarity Urine pH Ur Specific [place] Urine Protein Urine Glucose (UA) Urine Ketones Urine Blood Urine Nitrate Urine Bilirubin Urine Urobilinogen Ur Leukocyte Esterase Urine RBC (Auto) Urine Microscopic WBC Ur Squamous Epith Cells Influenza Typ A,B (EIA) 02/20/18 05:50 WBC RBC Hgb Hct MCV MCH MCHC RDW Plt Count MPV Neut % (Auto) Lymph % (Auto) [place] % (Auto) Eos % (Auto) Baso % (Auto) Neut # (Auto) Lymph # (Auto) [place] # (Auto) Eos # (Auto) Baso # (Auto) Neutrophils % (Manual) Band Neutrophils % Lymphocytes % (Manual) Monocytes % (Manual) Platelet Estimate Giant Platelets Anisocytosis (manual) PT INR APTT pO2 VBG pH VBG pCO2 VBG HCO3 VBG Total CO2 VBG O2 Sat (Calc) VBG Base Excess VBG Potassium Glucose Lactate FiO2 Crit Value Called To Crit Value Called By Crit Value Read Back Blood Gas Notified Time Sodium 140 Potassium 3.9 Chloride 104 Carbon Dioxide 28 Anion Gap 12 BUN 10 Creatinine 0.7 L Est GFR ( Amer) > 60 Est GFR (Non-Af Amer) > 60 POC Glucose (mg/dL) Random Glucose 110 Lactic Acid Calcium 8.5 Total Bilirubin AST ALT Alkaline Phosphatase Total Protein Albumin Globulin Albumin/Globulin Ratio Lipase Venous Blood Potassium Urine Color Urine Clarity Urine pH Ur Specific [place] Urine Protein Urine Glucose (UA) Urine Ketones Urine Blood Urine Nitrate Urine Bilirubin Urine Urobilinogen Ur Leukocyte Esterase Urine RBC (Auto) Urine Microscopic WBC Ur Squamous Epith Cells Influenza Typ A,B (EIA) Assessment & Plan - Assessment and Plan (Free Text) Assessment: 37M w/ crohns disease flare, colitis w/ abdominal abscess 1.8 x 1.8cm loculated in the sigmoid region. CT Abd/Pelvis noted with evidence of ileitis and sigmoid colitis. Loculated abscess in the sigmoid region 1.8 x 1.8 cm. Plan: - Pain control PRN w/ Morph - Bowel rest - IV Steriods for Crohns flare - IVF - replace lytes PRN - c/w IV Abx Zosyn - discussed w/ Dr. Morrison GI attending PGY2
[2018-02-20] MEDS: MethylPREDNISolone 40 mg Vial IVP SCH ×2 (10:14→21:59)
[2018-02-20] MEDS: Dextrose 5%/0.9% NS 1,000 ML IV SCH (17:09)
--- NOTE | 2018-02-20 20:43 | HP ---
HISTORY OF PRESENT ILLNESS: Mr. Phillips is a 37-year-old male who was admitted via the emergency room because of abdominal pain for several days prior to presentation, associated with bloating and explosive diarrhea for a few days but now has somewhat resolved, where he has not quite moved his bowels. PAST MEDICAL HISTORY: He has a history of Crohn's disease and last exacerbation was in 2001 when he had a colonoscopy. He had been on medications in the past but recently has not been taking any medication because he has been well for the past 2 years. No other past medical history exists. SOCIAL HISTORY: Socially, he quit smoking cigarettes recently and uses vapes. He does not drink, works as a business process consultant. FAMILY HISTORY: Noncontributory. PHYSICAL EXAMINATION GENERAL: The patient is alert and oriented, appears to have slightly improved since admission. VITAL SIGNS: Temperature maximum on admission was 101.5 degrees Fahrenheit, blood pressure 142/97 with a pulse of 131, respiratory rate 18, O2 sat 99% on room air. SKIN: Shows fair turgor. HEENT: Pupils are equal and reactive to light and accommodation. Mouth shows fair hygiene. NECK: JVP flat. LUNGS: Clear. HEART: Regular. No murmurs or gallop. ABDOMEN: Diffuse tenderness. There are normoactive bowel sounds. No organomegaly appreciated. GENITALIA: Deferred. RECTAL: Deferred. CENTRAL NERVOUS SYSTEM: Grossly intact. EXTREMITIES: Show no edema or cyanosis. LABORATORY DATA: WBC 9.4, hemoglobin 13.8, platelet count 469,000. Sodium 136, potassium 4, BUN 11, creatinine 0.8, glucose of 122, CO2 content 23. CAT scan of the abdomen and pelvis reviewed with evidence of ileitis and sigmoid colitis, loculated abscess in the sigmoid region 1.8 x 1.8 cm. IMPRESSION: Acute exacerbation of Crohn's disease with sigmoid abscess. PLAN: Intravenous antibiotics and analgesics for pain. Gastroenterology and surgical evaluation. We will begin the patient on liquid diet as tolerated. Further therapy will depend on findings. Darshan Laureano MD
[2018-02-21 01:42] VITALS: RESP 20
[2018-02-21] MEDS: Piperacillin/Tazobact 3.375 GM in Sodium Chloride 0.9% 100 ML IVPB SCH (04:14)
[2018-02-21] MEDS: Dextrose 5%/0.9% NS 1,000 ML IV SCH (04:17)
--- NOTE | 2018-02-21 06:56 | CP.PCM.PN ---
Subjective - Date & Time of Evaluation Date of Evaluation: 02/21/18 Time of Evaluation: 06:55 - Subjective Subjective: Surgery: Dr. Wren Pt seen and examined. Resting comfortably in bed. No acute events overnight. Pain controlled. States that he is hungry. Objective - Vital Signs/Intake and Output Vital Signs (last 24 hours): Temp Pulse Resp BP Pulse Ox 97.9 F 60 20 97/60 L 98 02/21/18 01:42 02/21/18 01:42 02/21/18 01:42 02/21/18 01:42 02/21/18 01:42 - Medications Medications: Current Medications Acetaminophen (Tylenol 325mg Tab) 650 mg PO Q4 PRN PRN Reason: Fever >100.4 F Piperacillin Sod/Tazobactam (Sod 3.375 gm/ Sodium Chloride) 100 mls @ 100 mls/hr IVPB Q6 JOSEFA; Protocol Last Admin: 02/21/18 04:14 Dose: 100 mls/hr Dextrose/Sodium Chloride (Dextrose 5%/0.9% Ns 1000 Ml) 1,000 mls @ 100 mls/hr IV .Q10H [facility] Stop: 02/21/18 14:52 Last Admin: 02/21/18 04:17 Dose: 100 mls/hr Methylprednisolone (Solu-Medrol) 20 mg IVP Q12H JOSEFA Last Admin: 02/20/18 21:59 Dose: 20 mg Morphine Sulfate (Morphine) 4 mg IVP Q6 PRN PRN Reason: Pain, moderate (4-7) Ondansetron HCl (Zofran Inj) 4 mg IVP Q4 PRN PRN Reason: Nausea/Vomiting Pantoprazole Sodium (Protonix Inj) 40 mg IVP DAILY [facility] Last Admin: 02/20/18 10:13 Dose: 40 mg - Labs Labs: 02/20/18 05:50 02/20/18 05:50 PT 12.3 Seconds (9.8-13.1) 02/19/18 14:44 INR 1.1 02/19/18 14:44 APTT 36.1 Seconds (25.6-37.1) 02/19/18 14:44 - Constitutional Appears: Non-toxic, No Acute Distress - Head Exam Head Exam: ATRAUMATIC, NORMOCEPHALIC - Eye Exam Eye Exam: EOMI - ENT Exam ENT Exam: Mucous Membranes Moist - Neck Exam Neck Exam: Full ROM - Respiratory Exam Respiratory Exam: NORMAL BREATHING PATTERN. absent: Accessory Muscle Use, Respiratory Distress - GI/Abdominal Exam GI & Abdominal Exam: Soft. absent: Distended, Firm, Guarding, Rigid, Tenderness, Rebound - Extremities Exam Extremities Exam: absent: Calf Tenderness, Pedal Edema - Neurological Exam Neurological Exam: Alert, Awake, Oriented x3 Assessment and Plan - Assessment and Plan (Free Text) Assessment: 37M w. crohn's flare w. abscess -advance diet to regular -c/w steroids and abx -no surgical intervention at this time -clear for d/c from surgical standpoint -d/w attending Vipinitis PGY4
[2018-02-21 08:31] VITALS: BP 102/60; PULSE 62; TEMP 97.7
[2018-02-21] MEDS: MethylPREDNISolone 40 mg Vial IVP SCH (08:50)
--- NOTE | 2018-02-21 08:56 | CP.PCM.DIS ---
Provider - Provider Date of Admission: 02/20/18 08:37 Attending physician: Darshan Laureano MD Time Spent in preparation of Discharge (in minutes): 30 Diagnosis - Discharge Diagnosis (1) Abdominal pain Status: Acute (2) Crohn disease Status: Acute Hospital Course - Lab Results Lab Results: Micro Results 02/19/18 14:44 Blood-Venous Blood Culture - Preliminary Gram Positive Cocci 02/19/18 14:44 Blood-Venous Gram Stain - Final 02/19/18 14:54 Blood-Venous Blood Culture - Preliminary Gram Positive Cocci 02/19/18 14:54 Blood-Venous Gram Stain - Final Most Recent Lab Values WBC 4.8 K/uL (4.8-10.8) 02/20/18 05:50 RBC 4.35 Mil/uL (4.40-5.90) L 02/20/18 05:50 Hgb 11.6 g/dL (12.0-18.0) L D 02/20/18 05:50 Hct 36.1 % (35.0-51.0) 02/20/18 05:50 MCV 82.9 fl (80.0-94.0) 02/20/18 05:50 MCH 26.7 pg (27.0-31.0) L 02/20/18 05:50 MCHC 32.2 g/dL (33.0-37.0) L 02/20/18 05:50 RDW 15.5 % (11.5-14.5) H 02/20/18 05:50 Plt Count 285 K/uL (130-400) D 02/20/18 05:50 MPV 7.4 fl (7.2-11.7) 02/20/18 05:50 Neut % (Auto) 87.4 % (50.0-75.0) H 02/20/18 05:50 Lymph % (Auto) 4.7 % (20.0-40.0) L 02/20/18 05:50 [place]ike % (Auto) 6.5 % (0.0-10.0) 02/20/18 05:50 Eos % (Auto) 0.8 % (0.0-4.0) 02/20/18 05:50 Baso % (Auto) 0.6 % (0.0-2.0) 02/20/18 05:50 Neut # (Auto) 4.2 K/uL (1.8-7.0) 02/20/18 05:50 Lymph # (Auto) 0.2 K/uL (1.0-4.3) L 02/20/18 05:50 Pike # (Auto) 0.3 K/uL (0.0-0.8) 02/20/18 05:50 Eos # (Auto) 0.0 K/uL (0.0-0.7) 02/20/18 05:50 Baso # (Auto) 0.0 K/uL (0.0-0.2) 02/20/18 05:50 Neutrophils % (Manual) 87 % (42-75) H 02/19/18 14:44 Band Neutrophils % 4 % (0-2) H 02/19/18 14:44 Lymphocytes % (Manual) 6 % (20-50) L 02/19/18 14:44 Monocytes % (Manual) 3 % (0-10) 02/19/18 14:44 Platelet Estimate Increased (NORMAL) H 02/19/18 14:44 Giant Platelets Present 02/19/18 14:44 Anisocytosis (manual) Slight 02/19/18 14:44 PT 12.3 Seconds (9.8-13.1) 02/19/18 14:44 INR 1.1 02/19/18 14:44 APTT 36.1 Seconds (25.6-37.1) 02/19/18 14:44 pO2 71 mm/Hg (30-55) H 02/19/18 20:15 VBG pH 7.67 (7.32-7.43) H* 02/19/18 20:15 VBG pCO2 16 mmHg (40-60) L* 02/19/18 20:15 VBG HCO3 25.5 mmol/L 02/19/18 20:15 VBG Total CO2 19.0 mmol/L (22-28) L 02/19/18 20:15 VBG O2 Sat (Calc) 98.4 % (40-65) H 02/19/18 20:15 VBG Base Excess 0.8 mmol/L (0.0-2.0) 02/19/18 20:15 VBG Potassium 3.8 mmol/L (3.6-5.2) 02/19/18 20:15 Sodium 129.0 mmol/L (132-148) L 02/19/18 20:15 Chloride 97.0 mmol/L (98-107) L 02/19/18 20:15 Glucose 178 mg/dL (75-110) H 02/19/18 20:15 Lactate 4.5 mmol/L (0.7-2.1) H* 02/19/18 20:15 FiO2 21.0 % 02/19/18 20:15 Crit Value Called To Ching whitman 02/19/18 20:15 Crit Value Called By 23 02/19/18 20:15 Crit Value Read Back Y 02/19/18 20:15 Blood Gas Notified Time 202402/19/18 20:15 Sodium 140 mmol/l (132-148) 02/20/18 05:50 Potassium 3.9 MMOL/L (3.6-5.0) 02/20/18 05:50 Chloride 104 mmol/L (98-107) 02/20/18 05:50 Carbon Dioxide 28 mmol/L (22-30) 02/20/18 05:50 Anion Gap 12 (10-20) 02/20/18 05:50 BUN 10 mg/dl (9-20) 02/20/18 05:50 Creatinine 0.7 mg/dl (0.8-1.5) L 02/20/18 05:50 Est GFR ( Amer) > 60 02/20/18 05:50 Est GFR (Non-Af Amer) > 60 02/20/18 05:50 POC Glucose (mg/dL) 80 mg/dL (65-110) 02/19/18 19:02 Random Glucose 110 mg/dL (75-110) 02/20/18 05:50 Lactic Acid < 0.5 MMOL/L (0.7-2.1) L 02/20/18 00:23 Calcium 8.5 mg/dL (8.4-10.2) 02/20/18 05:50 Total Bilirubin 0.9 mg/dl (0.2-1.3) 02/19/18 14:44 AST 20 U/L (17-59) 02/19/18 14:44 ALT 16 U/L (21-72) L D 02/19/18 14:44 Alkaline Phosphatase 102 U/L (38-126) 02/19/18 14:44 Total Protein 8.6 G/DL (6.3-8.2) H 02/19/18 14:44 Albumin 4.8 g/dL (3.5-5.0) 02/19/18 14:44 Globulin 3.9 gm/dL (2.2-3.9) 02/19/18 14:44 Albumin/Globulin Ratio 1.2 (1.0-2.1) 02/19/18 14:44 Lipase 34 U/L (23-300) 02/19/18 14:44 Venous Blood Potassium 3.8 mmol/L (3.6-5.2) 02/19/18 20:15 Urine Color Yellow (YELLOW) 02/19/18 19:08 Urine Clarity Slighty-cloudy (Clear) 02/19/18 19:08 Urine pH 6.0 (5.0-8.0) 02/19/18 19:08 Ur Specific [place] 1.030 (1.003-1.030) 02/19/18 19:08 Urine Protein Negative mg/dL (NEGATIVE) 02/19/18 19:08 Urine Glucose (UA) Neg mg/dL (Normal) 02/19/18 19:08 Urine Ketones 20 mg/dL (NEGATIVE) 02/19/18 19:08 Urine Blood Negative (NEGATIVE) 02/19/18 19:08 Urine Nitrate Negative (NEGATIVE) 02/19/18 19:08 Urine Bilirubin Negative (NEGATIVE) 02/19/18 19:08 Urine Urobilinogen 4.0 mg/dL (0.2-1.0) 02/19/18 19:08 Ur Leukocyte Esterase Neg Carla/uL (Negative) 02/19/18 19:08 Urine RBC (Auto) 2 /hpf (0-3) 02/19/18 19:08 Urine Microscopic WBC 1 /hpf (0-5) 02/19/18 19:08 Ur Squamous Epith Cells < 1 /hpf (0-5) 02/19/18 19:08 Influenza Typ A,B (EIA) Negative for flu a/b (NEGATIVE) 02/19/18 14:44 - Hospital Course Hospital Course: abdominal pain resolved mild diarrhea present wants to go home Discharge Exam - Head Exam Head Exam: ATRAUMATIC, NORMOCEPHALIC - Eye Exam Eye Exam: EOMI, Normal appearance, PERRL Pupil Exam: NORMAL ACCOMODATION, PERRL - GI/Abdominal Exam GI & Abdominal Exam: Normal Bowel Sounds - Rectal Exam Rectal Exam: NORMAL INSPECTION - Neurological Exam Neurological exam: Alert, CN II-XII Intact, Normal Gait, Oriented x3, Reflexes Normal - Psychiatric Exam Psychiatric exam: Normal Affect, Normal Mood - Skin Skin Exam: Dry, Intact, Normal Color, Warm Discharge Plan - Follow Up Plan Condition: GOOD Disposition: HOME/ ROUTINE Instructions: Crohn's Disease (DC) Additional Instructions: follow up with primary MD 1 week Referrals: Hemal Wren MD [Staff Provider] - Danielito Morrison MD [Staff Provider] -
[2018-02-21 14:30] VITALS: O2SAT 99
== END 2018-02-21 10:02 | disposition home or self-care (01) | DRG 386 ==
LOC: H.ER 13:25 → H.ERHOLD 18:12 → H.MEDSURG1 22:48 → OBSVTOIN 02-20 08:37
PROVIDERS: ADMIT Internal Medicine Pulmonary Disease; ATTEND Internal Medicine Pulmonary Disease
DX: K50.914 Crohn's disease, unspecified, with abscess (principal); R78.81 Bacteremia; F17.200 Nicotine dependence, unspecified, uncomplicated; K52.9 Noninfective gastroenteritis and colitis, unspecified; Z88.6 Allergy status to analgesic agent; Z91.013 Allergy to seafood